=== PATIENT | female | born 1970 | race Caucasian/White ===

== ENCOUNTER 2017-07-24 10:44 | Day surgery (SDC) | payer OTHER ==
[~2017-07-24] VITALS: Ht 160 cm; Wt 60.5 kg
[~2017-07-24 10:44] MED LIST: AMOCLA875 PO; AMOX500 PO; Ativan1 MG PO; CEPH500 PO; CIPR500 PO; CYCL10 PO; DIPATR PO; HYDACE5 PO; IBUP200; IBUP200 PO; IBUP600 PO; ISOMON30 PO; LOPE2C PO; NAPR500 PO; OMEP20ER PO; OXYACE5T PO; PHENA200 PO; PRED20 PO; PROM25 PO; Pepcid20 MG PO; RXHYDACE PO; RXOXYACE PO; TRAM50 PO; TRAZ50 PO; VENL150ER PO; Zofran8 MG PO
== END 2017-07-24 12:00 | disposition home or self-care (01) ==
LOC: ORSCSDS 10:44
PROVIDERS: Internal Medicine Gastroenterology
PROC: 0DB68ZX Excision of Stomach, Via Natural or Artificial Opening Endoscopic, Diagnostic (ICD-10-PCS; principal; 2017-07-24 11:30)
PROC: 0DB58ZX Excision of Esophagus, Via Natural or Artificial Opening Endoscopic, Diagnostic (ICD-10-PCS; principal; 2017-07-24 11:30)
DX: K21.9 Gastro-esophageal reflux disease without esophagitis (principal); K20.9 Esophagitis, unspecified; B18.2 Chronic viral hepatitis C; F17.210 Nicotine dependence, cigarettes, uncomplicated; K31.9 Disease of stomach and duodenum, unspecified; K30 Functional dyspepsia; F41.8 Other specified anxiety disorders; Z79.899 Other long term (current) drug therapy
CPT/HCPCS: 88305; 88342; J2250; J7120

== ENCOUNTER 2018-01-05 18:01 | Emergency (ER) | payer OTHER ==
[~2018-01-05] VITALS: Ht 160 cm; Wt 63.5 kg
== END 2018-01-05 18:56 | disposition left against medical advice (07) ==
LOC: ER 18:01
DX: M25.461 Effusion, right knee (principal); Z79.899 Other long term (current) drug therapy; F17.210 Nicotine dependence, cigarettes, uncomplicated

== ENCOUNTER 2018-01-06 11:26 | Emergency (ER) | payer OTHER ==
[~2018-01-06] VITALS: Ht 160 cm; Wt 63.5 kg
== END 2018-01-06 14:10 | disposition home or self-care (01) ==
LOC: ER 11:26
DX: M25.461 Effusion, right knee (principal); F17.210 Nicotine dependence, cigarettes, uncomplicated; Z79.899 Other long term (current) drug therapy
CPT/HCPCS: 93971; 99283-25

== ENCOUNTER 2019-10-12 18:29 | Emergency (ER) | payer OTHER ==
[~2019-10-12] VITALS: Ht 160 cm; Wt 68.0 kg
[2019-10-12 19:16] LABS: BASOPHILS ABSOLUTE AUTO 0.05 K/mm3 (0.00-0.23); BASOPHILS PERCENT AUTO 1 % (0-2); EOSINOPHILS ABSOLUTE AUTO 0.29 K/mm3 (0.00-0.68); EOSINOPHILS PERCENT AUTO 3 % (0-6); Hematocrit 42.9 % (33.0-51.0); Hemoglobin 14.3 g/dL (11.5-16.0); IMMATURE GRAN ABSOLUTE AUTO 0.02 K/mm3 (0.00-0.10); IMMATURE GRAN PERCENT AUTO 0 % (0-1); LYMPHOCYTES ABSOLUTE AUTO 2.73 K/mm3 (0.84-5.20); LYMPHOCYTES PERCENT AUTO 27 % (21-46); MONOCYTES ABSOLUTE AUTO 0.69 K/mm3 (0.16-1.47); MONOCYTES PERCENT AUTO 7 % (4-13); Mean Corpuscular HGB 32.1 pg (26.0-34.0); Mean Corpuscular HGB Conc 33.3 g/dL (31.5-36.5); Mean Corpuscular Volume 96 fL (80-100); Mean Platelet Volume 8.9 fL (9.1-12.4); NEUTROPHILS ABSOLUTE AUTO 6.33 K/mm3 (1.96-9.15); NEUTROPHILS PERCENT AUTO 63 % (41-73); Platelet Count 277 K/mm3 (150-400); RDW Coefficient Variation 13.1 % (11.7-14.2); RDW Standard Deviation 46.9 fL (35.1-46.3); Red Blood Cell Count 4.45 M/mm3 (3.80-5.20); White Blood Cell Count 10.11 K/mm3 (4.00-11.30)
[2019-10-12 19:33] LABS: Alanine Aminotransfer (ALT/SGP 147 U/L (12-78); Albumin, Blood 3.6 g/dL (3.4-5.0); Albumin/Globulin Ratio 0.9 (0.8-1.8); Alk Phos 85 U/L (50-136); Anion Gap 7 mmol/L (6-16); Aspartate Aminotrans (AST/SGOT 112 U/L (12-37); Bilirubin, Total 0.2 mg/dL (0.1-1.0); Blood Urea Nitrogen 12 mg/dL (8-24); Bun/Creatinine Ratio 20.8 (12.0-20.0); CO2, Blood 26 mmol/L (21-32); Calcium, Blood 8.5 mg/dL (8.5-10.1); Chloride, Blood 108 mmol/L (98-108); Creatinine, Blood 0.58 mg/dL (0.40-1.00); Globulin, Blood 3.9 g/dL (2.2-4.0); Glomerular Filtration Rate >60 (60-); Glucose, Blood 99 mg/dL (70-99); Potassium, Blood 3.7 mmol/L (3.5-5.5); Sodium, Blood 141 mmol/L (136-145); Total Protein, Blood 7.5 g/dL (6.4-8.2); Troponin I <0.015 ng/mL (0.000-0.040)
[2019-10-12] MEDS ORDERED: Robaxin-750750 MG PO (20:33)
[2019-11-18] MEDS ORDERED: CEPH500 PO (00:06)
== END 2019-10-12 20:51 | disposition home or self-care (01) ==
LOC: ER 18:29
PROVIDERS: Physician Assistant
DX: R07.89 Other chest pain (principal); F10.10 Alcohol abuse, uncomplicated; Z79.899 Other long term (current) drug therapy; Z86.19 Personal history of other infectious and parasitic diseases
CPT/HCPCS: 36415; 71046; 80053; 84484; 85025; 93005; 93010; 99285-25

== ENCOUNTER → 2019-12-05 | Outpatient (CLI) | payer OTHER ==
[~2019-12-05] MED LIST changes: +Robaxin-750750 MG PO
[2019-12-11 11:09] LABS: ANABASINE <1 ng/mL (.); COTININE <10 ng/mL (.); NICOTINE <10 ng/mL (.)
== END | disposition home or self-care (01) ==
LOC: LAB SHORT 10:41 → OLS 10:41 → LAB FUT 12-02 11:45
PROVIDERS: Surgery
DX: F17.200 Nicotine dependence, unspecified, uncomplicated (principal)
CPT/HCPCS: G0480

== ENCOUNTER 2020-02-10 06:03 | Day surgery (SDC) | payer OTHER ==
[~2020-02-10] VITALS: Ht 160 cm; Wt 65.0 kg
[~2020-02-10 06:03] MED LIST changes: +OXYB5 PO; +TRAZ100 PO
--- NOTE | 2020-02-10 06:56 | NUR ---
Ambulatory in Day Surgery History, Chart, Medications and Allergies reviewed before start of procedure. Lungs clear T/O to Auscultation. Pre-Op teaching done. Pt verbalizes understanding.
--- NOTE | 2020-02-10 10:48 | NUR ---
THREE INCISIONS TO ABDOMENT WITH STERI STRIPS IN PLACE WITH SCANT SANG DRAINAGE. PT AROUSES THEN FALLS BACK ASLEEP.
--- NOTE | 2020-02-10 11:24 | NUR ---
Patient up to Ambulate independently. Gait steady. STERI STRIPS REMAIN IN [place] WITHNO CHANGE SINCE ARRIVED IN STEP. Discharge instructions reviewed with patient. Patient verbalizes understanding. Copy given to patient to take home. Patient States Post-Procedure ride home has been arranged. Discharged via wheelchair to private car for ride home. ALL BELONINGS RETURNED TO PATIENT.
== END 2020-02-10 12:00 | disposition home or self-care (01) ==
LOC: ORSCMMR 06:03 → ORD 07:30 → ORSCMMR 12:00
PROVIDERS: Surgery
PROC: 8E0W4CZ Robotic Assisted Procedure of Trunk Region, Percutaneous Endoscopic Approach (ICD-10-PCS; principal; 2020-02-10 07:30)
PROC: 0YU74JZ Supplement Right Femoral Region with Synthetic Substitute, Percutaneous Endoscopic Approach (ICD-10-PCS; principal; 2020-02-10 07:30)
DX: K41.90 Unilateral femoral hernia, without obstruction or gangrene, not specified as recurrent (principal); F17.210 Nicotine dependence, cigarettes, uncomplicated; K21.9 Gastro-esophageal reflux disease without esophagitis; Z79.899 Other long term (current) drug therapy
CPT/HCPCS: 49659; S2900; A9270-GY; C1781; J0690; J1100; J2250; J2405; J2704; J3010; J7120

== ENCOUNTER 2022-05-11 05:51 | Inpatient (IN) | payer OTHER ==
[~2022-05-11] VITALS: Ht 160 cm; Wt 61.5 kg
[~2022-05-11 05:51] MED LIST changes: +IBUP800 PO; +NAPR220 PO
[2022-05-11] MEDS ORDERED: SULTRIDS PO (14:36)
[2022-05-11] MEDS ORDERED: ASPI81CH PO (14:36)
[2022-05-11] MEDS ORDERED: OXYC5 PO (14:36)
== END 2022-05-11 16:20 | disposition home or self-care (01) | DRG 470 ==
LOC: SURS 05:51 → PRE IP 07:30 → SURS 11:07
PROVIDERS: ADMIT Orthopaedic Surgery
PROC: 8E0YXBZ Computer Assisted Procedure of Lower Extremity (ICD-10-PCS; 2022-05-11)
PROC: 0SR904A Replacement of Right Hip Joint with Ceramic on Polyethylene Synthetic Substitute, Uncemented, Open Approach (ICD-10-PCS; principal; 2022-05-11 07:30)
DX: M16.11 Unilateral primary osteoarthritis, right hip (principal); Z28.21 Immunization not carried out because of patient refusal; F10.20 Alcohol dependence, uncomplicated; F41.9 Anxiety disorder, unspecified; F32.A Depression, unspecified; K21.9 Gastro-esophageal reflux disease without esophagitis; B18.2 Chronic viral hepatitis C; Z90.49 Acquired absence of other specified parts of digestive tract; Z98.890 Other specified postprocedural states; Z98.51 Tubal ligation status
CPT/HCPCS: 72170; 97110; 97116; 97162; 97165; 97530; 97535; A9270; C1713; C1776; J0171; J0690; J0735; J1100; J1885; J2250; J2370; J2405; J2704; J2795; J3010; J3370; J7120